=== PATIENT | female | born 1940 | race African-American/Black ===

== ENCOUNTER 2017-01-05 02:43 | Inpatient (IN) ==
[2017-01-05] MEDS ORDERED: ZOFRAN IV ONE ×2 (03:12→06:12)
[2017-01-05] MEDS: LR 1,000 ML IV PRN ×2 (03:19→21:31)
[2017-01-05 03:29] LABS: BASO% 0.2 % (0.0-0.8); EOS# 0.07 X1000 (0.0-0.7); EOS% 0.7 % (0.0-10.0); HEMATOCRIT 29.6 % (37.0-47.0); HEMOGLOBIN 9.2 g/dL (12.0-16.0); IMM GRAN# 0.01 X1000 (0.0-0.04); IMM GRAN% 0.1 % (0.0-0.5); LYMPH# 1.58 X1000 (1.2-3.4); LYMPH% 16.8 % (20.5-51.1); MANUAL DIFF NEEDED? NO; MCH 20.4 PG (27-31); MCHC 31.1 g/dL (33-37); MCV 65.6 FL (81-99); MONO# 0.52 X1000 (0.11-0.59); MONO% 5.5 % (1.7-9.3); MPV 11.1 FL (7.4-10.4); NEUT% 76.7 % (42.2-75.2); PLT 314 X1000 (130-400); RBC 4.51 XMIL (4.2-5.4)
--- NOTE | 2017-01-05 04:02 | EKG Report ---
Test Performed on : 01/05/2017 03:27:23 AM Test Reason : n/v, epigastric pain Blood Pressure : / mmHG Vent. Rate : 087 BPM Atrial Rate : 087 BPM P-R Int : 170 ms QRS Dur : 100 ms QT Int : 398 ms P-R-T Axes : 052 031 024 degrees QTc Int : 478 ms Normal sinus rhythm. Normal ECG When compared with ECG of 04-MAR-2016 18:53, Minimal criteria for Inferior infarct are no longer present Unconfirmed Result
[2017-01-05] MEDS ORDERED: TORADOL ONE (04:20)
[2017-01-05] MEDS ORDERED: TORADOL IV ONE (04:20)
[2017-01-05] MEDS ORDERED: MORPHINE IV ONE (04:43)
--- NOTE | 2017-01-05 04:54 | PROVIDER DOCUMENTATION ---
HPI-Abdominal Pain/GI Problem - General Chief Complaint: Abdominal Pain Stated Complaint: VOMITING/FLANK PAIN Time Seen by Provider: 01/05/17 03:11 Source: patient Allergies/Adverse Reactions: Patient Allergies Allergy/AdvReac Type Severity Reaction Status Date / Time No Known Allergies Allergy Verified 12/05/13 09:15 Home Medications: Home Medication List Medication Instructions Recorded Confirmed Last Taken Type Amlodipine Besylate [Amlodipine 5 mg PO DAILY 01/05/17 01/05/17 Unknown History Besylate] Fluticasone 50 Mcg Nasal [place] 2 squirt SHAKEEL PRN PRN 01/05/17 01/05/17 Unknown History [Flonase] Losartan Potassium [Losartan 100 mg PO DAILY 01/05/17 01/05/17 Unknown History Potassium] Metoprolol Succinate [Toprol Xl] 50 mg PO DAILY 01/05/17 01/05/17 Unknown History Potassium Chloride E.r. [Klor-Con] 20 meq PO DAILY 01/05/17 01/05/17 Unknown History - History of Present Illness-ABD Abdominal Pain Onset Location: reports: RUQ, epigastric, flank (RIGHT) Pain Radiation: reports: flank (RIGHT) Quality of Pain: reports: sharp Severity in ED: reports: severe Onset/Duration: reports: 4-6 hours ago Timing: reports: still present Activities at Onset: reports: sleep Exposure to sick contacts?: No Modifying Factors: improves with: nothing Associated Symptoms: reports: fatigue, nausea, vomiting. denies: constipation Last BM: 24 hours ago Dark Stools Present?: reports: none noticed Rectal Bleeding: reports: none Rectal Pain: reports: none Emesis Description: reports: clear Bruising or Bleeding Gums?: No Similar Symptoms Previously?: No Recently seen or treated by another doctor?: Yes (HAD STRESS TEST WHICH WAS NEGATIVE- DX WITH ANEMIA) Review of Systems - Adult - REVIEW OF SYSTEMS - ADULT Constitutional: reports: no symptoms reported Eyes: reports: no symptoms reported Ears, Nose, Mouth & Throat: reports: no symptoms reported Cardiovascular: reports: no symptoms reported Respiratory: reports: no symptoms reported Gastrointestinal: reports: abdominal pain, nausea, vomiting Genitourinary: reports: no symptoms reported Musculoskeletal: reports: no symptoms reported Integumentary: reports: no symptoms reported Neurological: reports: no symptoms reported Psychiatric: reports: no symptoms reported Endocrine: reports: no symptoms reported Hematologic/Lymphatic: reports: no symptoms reported Allergic/Immunologic: reports: no symptoms reported All Other Systems: Reviewed and Negative Past History - Adult - PAST MEDICAL HISTORY-ADULT Review of Records: reports: Old Records Reviewed, Nursing Assessment Review, Medications Reviewed, Social history reviewed & non-contributory. Major Childhood Illnesses: reports: denies history Cardiovascular: reports: HTN Respiratory: reports: denies history Gastrointestinal: reports: denies history Obstetrical/Gynecological: reports: denies history Genitourinary: reports: kidney stones Musculoskeletal: reports: denies history Neurological: reports: denies history Endocrine/Immune: reports: denies history Other Conditions: reports: denies history - PRIOR SURGERIES/PROCEDURES Surgical/Procedure History: reports: appendectomy, hysterectomy - PRIOR HOSPITALIZATIONS Prior Hospitalizations: reports: for other non-related - IMMUNIZATION STATUS Childhood Immunizations: See Nurse Assessment Flu Vaccine: See Nurse Assessment - FAMILY HISTORY Family History: reviewed, not pertinent Physical Exam-General - PHYSICAL EXAM-ADULT Initial Vital Signs Reviewed: Yes - CONSTITUTIONAL General Appearance: alert, severe distress, obese - EYES Eyes: PERRL/EOMI, pink conjunctivae - HEAD, EARS, NOSE, MOUTH & THROAT HENMT: normocephalic/atraumatic, moist mucous membranes, normal ENT inspection - NECK Neck: full range of motion, supple - RESPIRATORY Respiratory: chest non-tender, lungs clear, normal breath sounds - CARDIOVASCULAR Cardiovascular: no edema, no gallop, no JVD, tachycardia - GASTROINTESTINAL (ABDOMEN) Abdominal Exam: abnormal bowel sounds (DECREASED), guarding (RUQ> RLQ), tenderness (RUQ>RLQ) - LYMPHATIC Lymphatic: no adenopathy - MUSCULOSKELETAL Back Exam: CVA tenderness (RIGHT) Extremity: normal range of motion, non-tender, normal inspection, no pedal edema Peripheral Pulses: radial (R): 3+, radial (L): 3+ - SKIN Integumentary: normal color, normal turgor, warm/dry - NEUROLOGIC Neurologic: grossly normal, no motor/sensory deficits - PSYCHIATRIC Psych/Mental Status: normal mood/affect, normal thought content, normal thought process, oriented x 3, anxious Progress - PLAN OF CARE/RESULTS Progress/Plan/Lab Results: Vital Signs - 8 hr 01/05/17 02:56 Temperature 98.5 F Pulse Rate 87 Respiratory Rate 20 Blood Pressure 176/92 O2 Sat by Pulse Oximetry 100 Laboratory Results - last 24 hr 01/05/17 01/05/17 03:10 03:10 WBC 9.39 RBC 4.51 Hgb 9.2 L Hct 29.6 L MCV 65.6 L MCH 20.4 L MCHC 31.1 L RDW Std Deviation 18.2 H Plt Count 314 MPV 11.1 H Immature Gran % (Auto) 0.1 Neut % (Auto) 76.7 H Lymph % (Auto) 16.8 L Lea % (Auto) 5.5 Eos % (Auto) 0.7 Baso % (Auto) 0.2 Immature Gran # (Auto) 0.01 Neut # (Auto) 7.19 H Lymph # (Auto) 1.58 Lea # (Auto) 0.52 Eos # (Auto) 0.07 Baso # (Auto) 0.02 Troponin T < 0.010 Orders Category Date Time Status CT ABD/PELVIS W/ IV CONT ONLY [CT] Stat Exams 01/05/17 04:41 Ordered FLAT/UPRIGHT ABD/1 VIEW CHEST [RAD] Stat Exams 01/05/17 03:12 Taken CBC WITH DIFF [HEME] Stat Lab 01/05/17 03:10 Completed COMPREHENSIVE METABOLIC PANEL [CHEM] Stat Lab 01/05/17 03:10 Received TROPONIN T Stat Lab 01/05/17 03:10 Completed Ketorolac [Toradol] Med 01/05/17 04:20 Discontinued 30 mg .ROUTE .STK-MED ONE Ketorolac [Toradol] Med 01/05/17 04:20 Discontinued 30 mg IV NOW ONE Lactated Ringers Inj [Lr] 1,000 ml Med 01/05/17 03:11 Active IV 100 mls/hr Morphine Med 01/05/17 04:43 Discontinued 4 mg IV NOW ONE Ondansetron [Zofran] Med 01/05/17 03:12 Discontinued 4 mg IV NOW ONE EKG [EKG] Stat Ther 01/05/17 03:22 Draft Result Diagrams: 01/05/17 03:10 01/05/17 03:10 - CT/MRI 1 CT Study: Abdomen, Pelvis, Renal Stone Impression: Abnormal CT Results: [id number] R prox ureteral stone with severe hydro. Liver/breast/lung mass/nod - CONSULTS/PCP/HOSPITALIST Notification #1 *Consult/PCP/Hospitalist*: Dr. Dominguez Time Discussed: 06:38 Reason/Comments: Will admit to Dr. Dominguez then arrange to [facility]. Consult Disposition: Will see in ED, Admit Departure - Departure Date of Disposition Decision: 01/05/17 Time of Disposition Decision: 06:39 DIAGNOSIS: Right ureteral stone, Liver mass, Hypertensive urgency Disposition: ADMITTED INPATIENT 09 Certified Medical Emergency: Emergent Condition: Stable Referrals and Follow-Ups: Jerald Trevizo MD [Primary Care Provider] - - Critical Care Note This patient required my direct & personal management of CC.: No Attestation - Physician/ NATHANIEL Attestation Patient care was provided by Advanced Practice Provider:: No The physician spent face to face time with patient:: Yes Advanced Practice Provider documentation review:: Supervising physician onsite and consulted in the evaluation and care of this patient. The physician did have a face to face encounter with the patient.
[2017-01-05 04:57] LABS: ALBUMIN 4.5 g/dL (3.5-5.0); POTASSIUM 3.5 mmol/L (3.5-5.1); TOTAL BILIRUBIN 0.3 mg/dL (0.20-1.00); TOTAL PROTEIN 8.1 g/dL (6.3-8.3)
[2017-01-05] MEDS ORDERED: PHENERGAN IV ONE (05:42)
[2017-01-05] MEDS ORDERED: SODIUM CHLORIDE 0.9% INJ ONE (05:42)
[2017-01-05] MEDS ORDERED: PHENERGAN ONE (05:43)
[2017-01-05] MEDS ORDERED: SODIUM CHLORIDE 0.9% 10 ML ONE (05:43)
[2017-01-05] MEDS ORDERED: DILAUDID IV ONE (06:12)
[2017-01-05] MEDS ORDERED: ROCEPHIN 1 GM in NS 50 ML IV ONE (06:34)
--- NOTE | 2017-01-05 06:34 | Diag Imaging Result Doc PS360 ---
EXAM: FLAT/UPRIGHT ABD/1 VIEW CHEST HISTORY: VOMITING TECHNIQUE: Four views COMPARISON: 03/04/2016 FINDINGS: The lungs are well expanded. There is a small hiatal hernia. The heart is mildly prominent. No free air beneath the diaphragm. There are degenerative spine changes. There is an 11 mm calcification adjacent to the right side of the L5 vertebra. IMPRESSION: 1.Lower right abdominal calcification which may be a ureteral stone 2.Constipation 3.Hiatal hernia Electronically signed by Melvin Faria 01/05/2017 6:31 AM
--- NOTE | 2017-01-05 07:27 | Diag Imaging Result Doc PS360 ---
EXAM: CT ABD/PELVIS W/ IV CONT ONLY HISTORY: RUQ PAIN ANEMIA TECHNIQUE: CT abdomen and pelvis with intravenous contrast. Dose reduction protocol. COMPARISON: None. FINDINGS: There are calcified granuloma in the lower lungs in addition to a 5 mm noncalcified nodule posteriorly in the left lower lobe on image 40. There is a fairly circumscribed 17 mm left retroareolar nodule. There is a moderate to large hiatal hernia. There are multiple scattered hypodense hepatic lesions measuring up to 3.5 cm. Spleen is not enlarged. Normal gallbladder, pancreas, and adrenal glands. There are scattered renal cysts. There is a delayed right-sided nephrogram with prominent hydronephrosis secondary to a 7 x 12 x 11 mm stone. No aortic aneurysm. Moderate atherosclerosis. No bowel obstruction. No inflammation about the cecum. No abscess. The urinary bladder is moderately distended and appears normal. The uterus has been removed. Neither ovary is enlarged. No pelvic mass. There are several mesenteric masses in the mid to lower abdomen and upper pelvis measuring up to 2.3 cm. IMPRESSION: 1.There is a large right ureteral stone with prominent proximal hydronephrosis. 2.Multiple liver metastases with multiple mesenteric masses which may be enlarged lymph nodes. 3.Moderate to large hiatal hernia 4.Indeterminate left retroareolar breast mass 5.Scattered calcified granuloma in addition to a 5 mm noncalcified left lower lobe nodule 6.Hysterectomy 7.For several scattered diverticula 8.A preliminary report was given at 5:58 AM Electronically signed by Melvin Faria 01/05/2017 7:25 AM
[2017-01-05] MEDS ORDERED: DILAUDID IV PRN (08:24)
[2017-01-05] MEDS ORDERED: ZOFRAN IV PRN (08:24)
--- NOTE | 2017-01-05 19:22 | HISTORY AND PHYSICAL ---
PRIMARY CARE PHYSICIAN: Dr. Jerald Trevizo. CHIEF COMPLAINT: Right flank pain. HISTORY OF PRESENT ILLNESS: This is a very pleasant, 76-year-old female who presented to the emergency room after being awakened by a sudden onset of stabbing right flank pain. She stated that shortly after awakening the pain did radiate around to her right lower quadrant with accompanying vomiting. She also had some epigastric pain. She stated the pain was a 10/10 at worst and a 4/10 at its least prior to coming to the emergency room. She denied any fevers, any chest pain, palpitations, syncope. CT of the abdomen and pelvis revealed a 7 x 12 x 11 mm right proximal ureter stone with proximal hydronephrosis for which she was given Dilaudid and Zofran, and admitted for further evaluation and treatment. PAST MEDICAL HISTORY: Hypertension, anemia, hiatal hernia. PAST SURGICAL HISTORY: Appendectomy, hysterectomy, total hip replacement, and carpal tunnel release. SOCIAL HISTORY: She denies alcohol, tobacco, or illicit drug use. ALLERGIES: No known drug allergies. HOME MEDICATIONS: Klor-Con 20 daily, Toprol-XL 50 daily, losartan 100 daily, amlodipine 5 mg daily, ferrous sulfate 325 mg 3 times a day, Flonase 2 squirts nasally p.r.n. REVIEW OF SYSTEMS: A 14-point review of systems is discussed with the patient with pertinent positives stated in the HPI. She denied chest pain, palpitations, syncope, dizziness, diarrhea, constipation, black or bloody vomitus, black or bloody stools, any shortness of breath, fever, chills, cough, PND, orthopnea, any hematuria, dysuria frequency or urgency. PHYSICAL EXAMINATION: GENERAL: This is a 76-year-old female who is lying in the bed, in no distress. VITAL SIGNS: Blood pressure is 164/76 with a heart rate of 76, respirations are 16, temperature is 98.6 degrees with a room air saturation of 97-100%. HEENT: Pupils are equal, round, react to light. EOMs are intact. Sclerae anicteric. Mucous membranes are moist. NECK: Supple. Trachea midline. CARDIOVASCULAR: Regular rate and rhythm. S1 and S2 are appreciated. PULMONARY: Breath sounds are clear with no increased work of breathing noted. GASTROINTESTINAL: Abdomen is soft, nondistended, tender right upper quadrant and right lower quadrant, with bowel sounds heard in all 4 quadrants. BACK: Positive CVAT on the right. EXTREMITIES: No clubbing, cyanosis, or edema. Pulses are palpable x 4. Calves are nontender. SKIN: Warm and dry with no rashes or lesions noted. NEUROLOGIC: She is alert oriented x 3 with cranial nerves 2-12 grossly intact. LABS: WBC is 9.3 with hemoglobin 9.2, hematocrit 29.6, and platelets of 314,000. Sodium is 143, potassium 3.5, BUN 21, creatinine 1.3 with a glucose of 144. RADIOLOGY: 1. Abdominal x-ray revealed a lower right abdominal calcification just to the right of the L5 vertebra, which may be a ureteral stone, constipation and hiatal hernia. Chest x-ray revealed lungs are well expanded, heart is mildly prominent and a small hiatal hernia. 2. CT of the abdomen and pelvis revealed a 7 x 12 x 11 proximal ureteral stone with proximal hydronephrosis, multiple liver metastases with multiple mesenteric masses, which may be enlarged lymph nodes, moderate to large hiatal hernia, indeterminate left retroareolar breast mass, scattered calcified granuloma in addition to a 5 mm noncalcified left lower lobe nodule, hysterectomy, several scattered diverticula. ASSESSMENT: 1. Proximal right ureteral nephrolithiasis with proximal hydronephrosis. 2. Acute kidney injury, most likely postobstructive secondary to #1. 3. Chronic anemia. 4. Hypertension. 5. Liver metastases with mesenteric masses. PLAN: The patient has been admitted to [facility]. She will continue with hydration as well as IV pain and nausea control. She was given Rocephin in the emergency room. We will continue this prophylactically. Dr. Pettit in urology has been consulted. Surgery is planned tentatively for in the morning. She will be transferred to [facility] for surgery. She will be NPO after midnight. The CT scan does show multiple liver metastases. The family members state that they are unaware of any prior diagnosis. With surgery pending, the patient has not been notified of this diagnosis, this can be discussed postop and a plan formulated. Further treatments pending hospital course. Dictated by TAMARA Talavera for Segun Dominguez MD cc: TAMARA Talavera MD
[2017-01-05] MEDS ORDERED: FLONASE NAS PRN (23:28)
[2017-01-06] MEDS: FERROUS SULFATE PO SCH ×2 (01:42→09:47)
--- NOTE | 2017-01-06 03:37 | PROGRESS NOTE ---
DATE: 01/05/2017 ADDENDUM: SUBJECTIVE: Patient notes that she is having some pain, but notes that she is feeling much better after the Dilaudid. Denies any nausea, vomiting. Denies any fevers or chills. Denies any dysuria. Patient seen and examined. Full orders discussed with nurse practitioner. Please see note for full details. We will admit patient to the hospital. IV fluids. Pain control. We will consult Urology. cc: Segun Dominguez MD
[2017-01-06] MEDS ORDERED: KEFZOL 1 GM/D5W 1 GM/50 ML IVPB IV ONE (06:16)
[2017-01-06] MEDS ORDERED: DIPRIVAN 1% ONE (06:25)
[2017-01-06] MEDS ORDERED: FENTANYL ONE (06:25)
[2017-01-06] MEDS ORDERED: XYLOCAINE-MPF 2% ONE (06:25)
[2017-01-06] MEDS ORDERED: NEO-SYNEPHRINE ONE (06:26)
[2017-01-06] MEDS ORDERED: QUELICIN (DOSE) ONE (06:26)
[2017-01-06] MEDS ORDERED: EPHEDRINE ONE (06:26)
[2017-01-06] MEDS ORDERED: ROBINUL ONE (06:26)
[2017-01-06] MEDS ORDERED: SODIUM CHLORIDE 0.9% 10 ML ONE (06:26)
[2017-01-06 06:31] LABS: HEMATOCRIT 25.3 % (37.0-47.0); HEMOGLOBIN 7.9 g/dL (12.0-16.0); MCH 21.4 PG (27-31); MCHC 31.2 g/dL (33-37); MCV 68.6 FL (81-99); MPV 10.6 FL (7.4-10.4); RBC 3.69 XMIL (4.2-5.4)
[2017-01-06] MEDS ORDERED: KEFZOL 1 GM/D5W 1 GM/50 ML IVPB ONE (06:40)
[2017-01-06 06:48] LABS: ALBUMIN 3.7 g/dL (3.5-5.0); CALCIUM 8.3 mg/dL (8.8-10.2); POTASSIUM 3.9 mmol/L (3.5-5.1); TOTAL BILIRUBIN 0.37 mg/dL (0.20-1.00); TOTAL PROTEIN 6.7 g/dL (6.3-8.3)
--- NOTE | 2017-01-06 07:23 | CONSULTATION ---
DATE OF CONSULTATION: 01/06/2017 CONSULTING PHYSICIAN: Dr. Dominguez. REASON FOR CONSULTATION: Right ureteral stone. HISTORY OF PRESENT ILLNESS: A 76-year-old female with previous history of urolithiasis in the remote past, which she spontaneously passed. She presented with right flank pain radiating to her abdomen, and associated with vomiting. She underwent CT scan in the emergency room, revealing a 12 mm right proximal ureteral stone with hydroureteronephrosis. She was admitted. PAST MEDICAL HISTORY: Hypertension, anemia, hiatal hernia. PAST SURGICAL HISTORY: Carpal tunnel release, total hip arthroplasty, hysterectomy, appendectomy. ALLERGIES: No known drug allergies. HOME MEDICATIONS: Flonase, iron, amlodipine, losartan, Toprol-XL, Klor-Con. FAMILY HISTORY: She denies history of urolithiasis or malignancies. REVIEW OF SYSTEMS: Reviewed 12 systems. Negative, except as noted in the HPI. PHYSICAL EXAMINATION: Vital Signs: Temperature 98.8 degrees, pulse 81, BP 180/ 73. General: No acute distress. Pleasant female. HEENT: Normocephalic, atraumatic. Cardiovascular: Regular rhythm. Pulmonary: Bilateral breath sounds. Abdomen: Protuberant. Nontender to palpation. Back: Mild right CVA tenderness. : Bladder is nontender to palpation. Lymphatic: No groin lymphadenopathy. Dermatologic: No obvious skin rashes. Neurologic: Alert and oriented x3. Psychiatric: Appropriate mood and affect. PERTINENT LABORATORY DATA: White cell count of 9000, hematocrit of 29.6. Creatinine of 1.3. PERTINENT IMAGING: CT abdomen and pelvis with IV contrast on 01/05/2017 revealing a 12 mm right ureteral stone as per HPI. ASSESSMENT: A 76-year-old female with very large proximal ureteral stone with hydronephrosis, significant pain, and nausea and vomiting. We discussed that she is very unlikely to pass a 12 mm stone. We discussed that her options would be a right ureteroscopy with laser lithotripsy, stone basket extraction, and ureteral stent placement versus shockwave lithotripsy. She desires to proceed with ureteroscopy, after learning about the benefits and risks of each. Risks of the ureteroscopy with laser lithotripsy, stone basket extraction, and stent, including but not limited to, bleeding, infection, injury to the bladder, injury to adjacent structures, inability to remove the stone, need for additional interventions were explained. She voiced understanding and wants to proceed. PLAN: 1. To the operating room this morning for cystoscopy, right ureteroscopy, laser lithotripsy, stone basket extraction, placement of ureteral stent. cc: Rosalio Pettit MD MTDD
--- NOTE | 2017-01-06 08:34 | Diag Imaging Result Doc PS360 ---
EXAM: FLUOROSCOPY CYSTO HISTORY: RIGHT STONE EXTRACTION, STENT PLACEMENT TECHNIQUE: 28 images COMMENT: Stone fragments in the right ureter were removed by Dr. Pettit and a stent was placed. No contrast was administered. IMPRESSION: Right ureteral stent placement and stone extraction Electronically signed by Yfn James 01/06/2017 8:32 AM
[2017-01-06] MEDS ORDERED: KLOR-CON PO SCH (09:00)
[2017-01-06] MEDS ORDERED: NORVASC PO SCH (09:00)
[2017-01-06] MEDS ORDERED: COZAAR PO SCH (09:00)
[2017-01-06] MEDS ORDERED: TOPROL XL PO SCH (09:00)
--- NOTE | 2017-01-06 09:14 | OPERATIVE NOTE ---
PROCEDURE DATE: 01/06/2017 SURGEON: Rosalio Pettit MD. PREOPERATIVE DIAGNOSES: 1. A 12 mm right ureteral stone. 2. Hydronephrosis. 3. Flank pain. PROCEDURES: Cystoscopy, right ureteroscopy, laser lithotripsy, stone basket extraction, placement of 6-Armenian x 24 cm ureteral stent. INDICATIONS: A 76-year-old female who was admitted to [facility] with severe right flank pain with nausea and vomiting. She underwent CT scan which, among other findings, revealed a 12 mm proximal right ureteral stone with hydroureteronephrosis. She was transferred to [facility] for further care. FINDINGS: Very large stone with significant mucosal edema. Successful stone treatment. Fragments were sent off for analysis. Successful stent placement. DESCRIPTION OF PROCEDURE: After obtaining informed consent, the patient was brought to the operating room. Perioperative antibiotics and laryngeal mask anesthesia were administered. She was placed in the lithotomy position, prepped and draped in a sterile fashion. A 21-Armenian rigid cystoscope was used to gain access to the bladder, which was then examined in a systematic fashion. She had no evidence of mucosal lesions, excessive trabeculations, diverticula noted. We turned attention to the right ureteral orifice where a PTFE wire was advanced to the level of stone that was easily seen on fluoroscopy. I could not advance the PTFE wire past the stone. Hence, I switched to a Sensor wire and still could not bypass the stone and advance into the renal pelvis. I then used a rigid ureteroscope and advanced it alongside of the wire to the level of the stone. After that, I was able to manipulate the wire via the ureteroscope and get into the renal pelvis. The ureteroscope was then withdrawn and reinserted alongside of the safety wire. A 0 Nitinol basket was used to secure the stone in the proximal ureter. Holmium laser settings of 0.8 joules and eventually 1 joule and 8 hertz were used with 365 micron laser fiber to break the stone up into multiple small fragments. Those were retrieved. Some the fragments were sent off for analysis. Repeat ureteroscopy revealed no evidence of mucosal injury, no evidence of residual sizable fragments. We elected to place a ureteral stent which was done in a standard fashion over the wire via the cystoscope with the proximal coil position confirmed fluoroscopically and distal coil directly visualized. It was a 6-Armenian x 24 cm stent. The string was left attached to the stent. Her bladder was emptied. Cystoscope was removed. She was extubated and taken to the PACU for further recovery. ESTIMATED BLOOD LOSS: None. COMPLICATIONS: None. DISPOSITION: To PACU and subsequently to the floor, back to the hospitalist service. I have discussed with the family that from my standpoint, she is stable and will be ready for discharge but I will defer to my hospitalist colleagues. cc: Rosalio Pettit MD
[2017-01-06] MEDS ORDERED: NORCO-10 PO PRN (09:27)
[2017-01-06] MEDS ORDERED: DITROPAN PO PRN (09:28)
[2017-01-06] MEDS: LR 1,000 ML IV PRN (09:48)
[2017-01-06] MEDS ORDERED: APRESOLINE IV PRN (10:03)
[2017-01-06] MEDS ORDERED: APRESOLINE IV ONE (10:03)
[2017-01-06 11:13] VITALS: BP 180/90
--- NOTE | 2017-01-06 16:35 | DISCHARGE SUMMARY ---
ADMISSION DATE: 01/05/2017 DISCHARGE DATE: 01/06/2017 CONSULTATIONS: Rosalio Pettit MD with Neurology. PERTINENT PROCEDURES: 1. Abdomen and pelvis CT showed a large right urethral stone, prominent proximal hydronephrosis, multiple liver metastasis with multiple mesenteric masses which may be enlarged lymph nodes, moderate to large hiatal hernia, indeterminate left retroareolar breast mass, scattered calcified granuloma in addition to a 5 mm noncalcified left lower lobe nodule, hysterectomy, several scattered diverticula. 2. Abdominal x-ray showed lower right abdomen calcification which may be a urethral stone, constipation or hiatal hernia. SURGICAL PROCEDURES: Cystoscopy, right ureteroscopy, laser lithotripsy, stone basket extraction and placement of 6-Kiswahili 24 cm ureteral stent performed by Dr. Pettit. HOSPITAL COURSE: Ms. Guevara is a 76-year-old female who carries a past medical history of urolithiasis, hypertension, anemia and hiatal hernia who presented to the ED with right flank pain that radiated to her abdomen with associated vomiting. She underwent a CT scan in the ED that revealed a 12 mL right proximal urethral stone with hydroureteronephrosis. She was admitted to [place] and transferred to [facility] for a Urology consultation. She was initiated on IV antibiotics, IV fluids as well as pain management. She underwent a cystoscopy, right ureteroscopy, laser lithotripsy, stone basket extraction and placement of 6-Kiswahili 24 cm ureteral stent by Dr. Pettit on 01/06 and after surgery he felt like she was stable and ready for discharge. VITAL SIGNS: Temperature is 98.7 degrees, heart rate 91, respirations 14, blood pressure is 180/73, O2 is 97% on room air. DISCHARGE DIET: Regular. DISCHARGE MEDICATIONS: 1. Norvasc 5 mg p.o. daily. 2. Ferrous sulfate 325 mg p.o. t.i.d. 3. Flonase 2 squirts nasally p.r.n. 4. [place] 10, 1 each p.o. q.6 hours p.r.n. 5. Losartan/potassium 100 mg p.o. daily. 6. Toprol-XL 50 mg p.o. daily. 7. Ditropan 5 mg p.o. t.i.d. p.r.n. 8. Klor-Con 20 mEq p.o. daily. DISPOSITION: Ms. Guevara is being discharged home. FOLLOWUP: She will follow up with Dr. Pettit on 03/14/2017 and with her primary care physician in 1-2 weeks. She can return to the ED for any worsening of symptoms. Dictated by TAMARA Clayton for Karlos Anderson MD cc: MD Jerald Springer MD
--- NOTE | 2017-01-11 11:09 | DISCHARGE SUMMARY ---
ADMISSION DATE: 01/05/2017 DISCHARGE DATE: 01/06/2017 ADDENDUM: DISCHARGE DIAGNOSES: 1. Proximal right urethral nephrolithiasis with proximal hydronephrosis, status post cystoscopy with right ureteroscopy laser lithotripsy and stone basket extraction with placement of 6- Kazakh x 24 cm urethral stone performed by Dr. Rosalio Pettit. The patient was discharged back home to follow up with Dr. Pettit on 02/15/2017. 2. Acute kidney injury secondary to #1. Creatinine stable at 1.3. 3. Chronic anemia, stable. 4. Hypertension. Continue home medications. 5. Liver metastasis with mesenteric masses. Dictated by TAMARA Clayton for Karlos Anderson MD cc: Karlos Anderson MD
== END 2017-01-06 14:05 | disposition home or self-care (01) ==
LOC: P.ED 02:43 → P.MEDSURG 11:02 → SUATTDRO 11:02 → 4N 23:27
PROVIDERS: ATTEND Internal Medicine